=== PATIENT | male | born 1975 | race Caucasian/White ===

== ENCOUNTER 2022-07-07 17:18 | Emergency (ER) | payer MEDICAID ==
[~2022-07-07] VITALS: Ht 154.9 cm; Wt 54.4 kg
[2022-07-07 17:26] VITALS: BP 140/81
[2022-07-07] MEDS ORDERED: predniSONE 20 MG TAB PO ONE (17:35)
[2022-07-07] MEDS ORDERED: ALBUTEROL SULFATE/IPRATROPIU 3 ML SOL IH ONE (17:35)
--- NOTE | 2022-07-07 17:38 | NUR ---
RT AT [facility]
[2022-07-07] MEDS ORDERED: ALBU0.0912 INH (18:29)
[2022-07-07] MEDS ORDERED: PRON INH (18:29)
[2022-07-07] MEDS ORDERED: PRED20TA5 PO (18:29)
[2022-07-07 19:07] VITALS: BP 133/72
--- NOTE | 2022-07-07 19:07 | NUR ---
Patient discharged with v/s stable. Written and verbal after care instructions given and explained. Patient alert, oriented and verbalized understanding of instructions. Ambulatory with steady gait. All questions addressed prior to discharge. ID band removed. Patient advised to follow up with PMD. Rx of Prednison and Proventil HFA given. Patient educated on indication of medication including possible reaction and side effects. Opportunity to ask questions provided and answered.
== END 2022-07-07 19:07 | disposition home or self-care (01) ==
LOC: MED 17:18
DX: J45.901 Unspecified asthma with (acute) exacerbation (principal); Z79.899 Other long term (current) drug therapy; Z95.0 Presence of cardiac pacemaker
CPT/HCPCS: 71045; 94640; 99283